=== PATIENT | male | born 1995 | race Hispanic/Latino ===

== ENCOUNTER 2017-04-10 16:00 | Emergency (ER) | payer MEDICAID, OTHER ==
[2017-04-10 16:07] VITALS: TEMP 98.1
[2017-04-10 16:22] VITALS: BMI 22.8
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
[2017-04-10 17:18] LABS: PH,URINE 6.5 (4.7-8.0); URINE BILIRUBIN NEGATIVE (NEGATIVE); URINE BLOOD NEGATIVE (NEGATIVE); URINE GLUCOSE (UA) NEGATIVE (NEGATIVE); URINE LEUKOCYTE ESTERASE NEGATIVE Leu/uL (NEGATIVE); URINE NITRATE NEGATIVE (NEGATIVE); URINE PROTEIN NEGATIVE mg/dL (<30 mg/dL); URINE UROBILINOGEN 0.2 E.U./dL (<1 E.U./dL)
[2017-04-10 17:21] LABS: URINE APPEARANCE CLEAR (CLEAR); URINE COLOR YELLOW (YELLOW)
[2017-04-10 17:42] LABS: BASO # 0.04 K/mm3 (0.0-2.0); BASO % 0.4 % (0.0-3.0); EOS # 0.4 (0.0-0.7); GRAN # 7.16 (1.4-6.5); GRAN % 68.5 % (50.0-68.0); LYMPH # 2.1 (1.2-3.4); LYMPH % 19.8 % (22.0-35.0); MEAN CELL VOLUME 91.6 fL (80.0-105.0); MEAN CORPUSCULAR HEMOGLOBIN 32.5 pg (25.0-35.0); MEAN CORPUSCULAR HGB CONC 35.5 g/dl (31.0-37.0); MEAN PLATELET VOLUME 10.7 fl (7.0-11.0); MONO # 0.8 (0.1-0.6); MONO % 7.3 % (1.0-6.0); PLATELET COUNT 245 10^3/uL (120.0-450.0); RBC 5.23 10^6/uL (3.5-6.1); RED CELL DISTRIBUTION WIDTH 13.3 % (11.5-14.5); WHITE BLOOD COUNT 10.5 10^3/ul (4.5-11.0)
[2017-04-10 17:56] LABS: BARBITURATES, UR NEGATIVE (NEGATIVE); BENZODIAZEPINES, UR POSITIVE (NEGATIVE); OPIATES, UR NEGATIVE (NEGATIVE); PHENCYCLIDINE, UR NEGATIVE (NEGATIVE)
[2017-04-10 17:58] LABS: SALICYLATE < 1 mg/dL (2.0-20.0)
[2017-04-10 17:59] LABS: ACETAMINOPHEN < 10.0 ug/ml (10.0-20.0)
[2017-04-10 18:00] LABS: ALB/GLOB RATIO 1.6 (1.1-1.8); ALT/SGPT 35 U/L (7-56); AST/SGOT 41 U/L (15-59); BLOOD UREA NITROGEN 16 mg/dL (7-21); CALCIUM 9.9 mg/dL (8.4-10.5); GFR AFRICAN-AMERICAN > 60; GFR NON-AFRICAN AMERICAN > 60
[2017-04-10 20:18] VITALS: BP 138/77; PULSE 73; RESP 16; O2SAT 99
--- NOTE | 2017-04-11 10:51 | CARD ---
APPROVED REPORT EKG Measurement Heart [id number] <Conclusion> Sinus rhythm with marked sinus arrhythmia Incomplete right bundle branch block Left anterior fascicular block Abnormal ECG
== END 2017-04-10 21:19 | disposition home or self-care (01) ==
LOC: ED 16:00
DX: F19.10 Other psychoactive substance abuse, uncomplicated (principal); F39 Unspecified mood [affective] disorder
CPT/HCPCS: 80053; 81003; 85025; 90791; 93005; 99284; G0480